=== PATIENT | female | born 1935 | race Caucasian/White ===

== ENCOUNTER → 2017-11-13 | Outpatient (CLI) | payer MEDICARE, OTHER ==
[~2017-11-13] MED LIST: ADVIL PM CAPLE1 EACH PO; AMOXICILLIN875 MG PO; ASPIR 8181 MG PO; ASPIRIN325 PO; CIPRO500 MG PO; HYDROCODONE-AP1 EAC6 PO; LEVSIN0.125 MG PO; NOHOMEMEDICATIONS; NORCO 5-325 TA1 EACH PO; NORVASC10 MG PO; ONDANSETRON HCL4 M2 PO; PYRIDIUM100 M1 PO; TYLENOL325 MG PO
[2017-11-13 12:22] LABS: ALBUMIN 3.9 g/dL (3.4-5.0); CALCIUM 9.2 mg/dL (8.5-10.1); CREATININE 1.6 mg/dL (0.6-1.3); POTASSIUM 4.5 mmol/L (3.5-5.1); TOTAL BILIRUBIN 0.3 mg/dL (<0.1-1.0); TOTAL PROTEIN 7.4 g/dL (6.4-8.2)
== END ==
LOC: M.RAD 11:26
PROVIDERS: Urology
DX: I70.0 Atherosclerosis of aorta (principal); Z85.53 Personal history of malignant neoplasm of renal pelvis

== ENCOUNTER → 2018-01-17 | Day surgery (SDC) | payer MEDICARE, OTHER ==
[2018-01-07 10:29] LABS: ABSOLUTE BASOPHILS 0.1 thou/uL (0.0-0.2); ABSOLUTE EOSINOPHILS 0.2 thou/uL (0.0-0.7); ABSOLUTE LYMPHOCYTES 1.7 thou/uL (0.8-5.3); ABSOLUTE MONOCYTES 0.4 thou/uL (0.0-1.2); ABSOLUTE NEUTROPHILS 3.1 thou/uL (1.6-8.1); BASOPHILS 1.3 %; EOSINOPHILS 3.8 %; HEMATOCRIT 40.6 % (37.0-47.0); HEMOGLOBIN 13.6 gm/dL (12.0-15.0); LYMPHOCYTES 30.5 %; MCH 31.4 pg (26.0-34.0); MCHC 33.6 g/dL (28.0-37.0); MCV 93.4 fL (80.0-100.0); MONOCYTES 7.4 %; NUCLEATED RBCS 0 /100WBC; PLATELET COUNT* 217 thou/uL (150-400); RBC 4.34 mil/uL (4.20-5.00); RDW-CV 13.9 % (10.5-14.5); WBC 5.5 thou/uL (4.0-11.0)
[2018-01-07 10:39] LABS: CALCIUM 9.7 mg/dL (8.5-10.1); CREATININE 1.3 mg/dL (0.6-1.3); POTASSIUM 4.2 mmol/L (3.5-5.1)
--- NOTE | 2018-01-07 10:44 | EKG ---
[place] [address] ELECTROCARDIOGRAM REPORT Name: BRADY WELLS Room: [facility].#: [id number] Admission: Attend Phys: Susi Aguilar, Discharge: Date of : 31 Report #: [id number] THIS REPORT FOR: //name// [facility] Test Date: 2018-01-07 Test Time: 09:52:50 Pat Name: BRADY WELLS Department: Room: Gender: F It Teacher: TIRSO : 1935 Requested By: Susi Aguilar Order Number: [id number] Reading MD: Evaristo Cope Measurements Intervals [place] Rate: 66 P: 76 CA: 176 QRS: -28 QRSD: 112 T: 37 QT: 393 QTc: 412 Interpretive Statements Sinus rhythm Atrial premature complex septal q waves Compared to ECG 12/25/2016 16:19:42 Atrial premature complex(es) now present Q waves now present Left ventricular hypertrophy no longer present Electronically Signed On 01-07-2018 10:44:00 CDT by Evaristo Cope [email or web address] <ELECTRONICALLY SIGNED> By: Evaristo Cope MD, [facility] 01/07/18 [phone] Evaristo Cope MD, [facility] /EPI
--- NOTE | 2018-01-22 14:50 | PATH ---
[address] [address] PATHOLOGY RPT PROCEDURE Name: BRADY WELLS Room: [facility] M.R.#: [id number] Admission: 01/17/18 Date of : 31 Discharge: Report #: [id number] Path Case #: [id number] L[facility] Accession Number: [id number] . 01 Material submitted: . PART A: BLADDER TUMOR PART B: DEEP BLADDER TUMOR . 01 Clinical history: . Bladder tumor . 02 Diagnosis: A. Bladder tumor: - NONINVASIVE, PAPILLARY UROTHELIAL CARCINOMA, HIGH GRADE. - Benign muscularis propria present. See comment. . B. Deep bladder tumor: - NONINVASIVE, PAPILLARY UROTHELIAL CARCINOMA, HIGH GRADE. - Benign muscularis propria present. See comment. (DARCI:cari; 01/21/2018) QMS/01/21/2018 . 02 Comment: Specimens A and B reviewed with Dr. Kiko Khanna, who agrees with the diagnoses. (DARCI:[facility]; 01/21/2018) . 02 Electronically signed: . Suresh Bustillo MD, Pathologist NPI- [id number] . 01 Gross description: . A. Received in formalin labeled "Brady Wells, bladder tumor," are multiple fragments of granados-brown soft tissue weighing less than 1 g and measuring 1.8 x 0.8 x 0.3 cm in aggregate dimensions. The specimen is submitted entirely in cassette A1. . B. Received in formalin labeled "Brady Wells, deep bladder tumor," are multiple fragments of granados-brown soft tissue weighing less than 1 g and measuring 1.3 x 1.2 x 0.3 cm in aggregate dimensions. The specimen is submitted entirely in cassette B1. (DAC; 01/18/2018) XDC/XDC . 02 Pathologist provided ICD-10: C67.9 . 02 [place] [address] PATHOLOGY RPT PROCEDURE Name: BRADY WELLS Room: [facility]#: [id number] Admission: 01/17/18 Date of : 31 Discharge: Report #: [id number] Path Case #: [id number] Performed at: 01 [facility] [address] [facility] [address], [place], [place] [id number] MD Jono Neville MD Phone: [phone] Performed at: 02 [facility] [address], [place], [place] [id number] MD Suresh Bustillo MD Phone: [phone]
--- NOTE | 2018-02-06 10:07 | OP ---
[facility] [address] [place] [address] OPERATIVE REPORT Name: BRADY WELLS Gregg Room: [facility].#: [id number] Admission: 01/17/18 Attend Phys: Susi Aguilar, Discharge: Date of : 31 Report #: [id number] THIS REPORT FOR: //name// CC: [facility] Susi Aguilar Hugo Garcia DATE OF SERVICE: 01/17/2018 PREOPERATIVE DIAGNOSIS: Bladder tumor. POSTOPERATIVE DIAGNOSIS: Bladder tumor. PROCEDURE: Transurethral resection of bladder tumor (medium), fulguration of small bladder tumor, right retrograde pyelogram. SURGEON: Susi Aguilar M.D. ANESTHESIA: General. ESTIMATED BLOOD LOSS: Minimal. COMPLICATIONS: None. SPECIMENS: 1. Bladder tumor. 2. Deep bladder tumor. INDICATIONS FOR PROCEDURE: The patient is an 82-year-old female who used to see my partner, Dr. Mayo. 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 Surveillance cystoscopy was recommended and she was noted to have an approximately 3 cm sessile appearing bladder tumor in the region of where the right ureteral orifice used to be. TURBT was recommended. The risks of procedure were discussed including but not limited to infection, bleeding, injury to the urethra, bladder or ureters, bladder perforation requiring open repair, cardiopulmonary complications. She voiced understanding and wishes to proceed. DESCRIPTION OF PROCEDURE: After informed consent was obtained, the patient was taken back to the operating suite and placed supine. After induction of general anesthesia, she was placed in dorsal lithotomy position. Genitalia were prepped and draped in standard fashion. A rigid cystoscopy was performed. Approximately 3 cm papillary sessile bladder tumor was seen arising from the right area where the right ureteral orifice used to be. This was somewhat mounded up in appearance. There was a very tiny bladder tumor on the right posterior wall, probably 2-3 mm in size, which [place] [address] OPERATIVE REPORT Name: BRADY WELLS [id number] Admission: 01/17/18 Attend Phys: Susi Aguilar, Discharge: Date of : 31 Report #: [id number] Her left ureteral orifice was normal and there were no other tumors noted. Intraoperative photographs were taken. Changed out to the 24-Azeri resectoscope and resection was performed of the bladder tumor in the right trigonal area where the UO used to be. Resection was noted to visualize muscle fibers; however, in the center of the tumor, initially looked like the tumor base was clear; however, with some pressure on the tumor base, I saw more papillary tumor arising from the center of the prior tumor site, almost as if the right UO was still present and tumor was protruding from the UO. I tried to manipulate this bimanually to get some of this exposed and to pop out and resected some of it, but I could not continue to resect deeper as I was going to perforate the bladder if I continued to proceed and tumor continued to appear erupting from the center of that tumor base. I did elect to go ahead and change the cystoscope and placed a cone tipped catheter in this area and I was able to slide it just inside this area and it literally almost looked as if the UO was still present. I injected contrast, but none filled any semblance of a ureteral remnant at all. It just all filled the bladder. I probed the area with a ZIPwire as well and it did not probe far at all, so I am unclear if this represents residual orifice or if this is just nature of the recurrent tumor. Nevertheless, I tried to fulgurate the base as best as possible even though there was still tumor underneath and photographs were taken. Hemostasis was excellent. At this point, I did send separate specimens of bladder tumor and deeper tissue. The posterior wall tumor was very tiny and I just fulgurated that with the loop thoroughly. I should also note there was no extravasation of contrast when I attempted a retrograde either. Bladder was filled and reinspected one final time. Hemostasis remained excellent. There was no remaining visible tumor, but I am confident there is still some papillary tumor below the center of the base of the tumor still. This may just represent muscle invasive tumor versus residual orifice. The bladder was drained one final time. The scope was removed and 5 mL of lidocaine jelly were placed per urethra for local anesthesia. She was awoken, extubated and taken to recovery in satisfactory condition. She will be dismissed home and follow up with me in a week to discuss pathology and next steps. <ELECTRONICALLY SIGNED> By: Susi Aguilar MD 02/06/18 1007 1349 1415Susi Aguilar MD /nt
== END | disposition home or self-care (01) ==
LOC: M.SUR 09:32
PROVIDERS: Urology
DX: C67.9 Malignant neoplasm of bladder, unspecified (principal); Z79.82 Long term (current) use of aspirin; Z79.891 Long term (current) use of opiate analgesic; Z98.890 Other specified postprocedural states; Z87.440 Personal history of urinary (tract) infections; Z85.53 Personal history of malignant neoplasm of renal pelvis

== ENCOUNTER → 2018-03-06 | Day surgery (SDC) | payer MEDICARE, OTHER ==
[2018-03-06 11:30] LABS: HEMATOCRIT 39.8 % (37.0-47.0); HEMOGLOBIN 13.2 gm/dL (12.0-15.0); MCH 31.1 pg (26.0-34.0); MCHC 33.2 g/dL (28.0-37.0); MCV 93.6 fL (80.0-100.0); MPV 8.7 fl. (7.2-11.1); RBC 4.26 mil/uL (4.20-5.00); RDW-CV 13.4 % (10.5-14.5); WBC 5.1 thou/uL (4.0-11.0)
[2018-03-06 11:36] LABS: CALCIUM 9.2 mg/dL (8.5-10.1); CREATININE 1.3 mg/dL (0.6-1.3); POTASSIUM 4.3 mmol/L (3.5-5.1)
[2018-03-06 11:40] LABS: ALBUMIN 3.9 g/dL (3.4-5.0); TOTAL BILIRUBIN 0.5 mg/dL (<0.1-1.0); TOTAL PROTEIN 7.6 g/dL (6.4-8.2)
--- NOTE | 2018-03-08 13:08 | OP ---
[facility] [address] [place] [address] OPERATIVE REPORT Name: RUSSELLBRADY R Room: [facility].#: [id number] Admission: 03/06/18 Attend Phys: Susi Aguilar, Discharge: Date of : 31 Report #: [id number] THIS REPORT FOR: //name// CC: [facility] Susi Aguilar Hugo Garcia DATE OF SERVICE: 03/06/2018 PREOPERATIVE DIAGNOSIS: Bladder cancer. POSTOPERATIVE DIAGNOSIS: Bladder cancer. PROCEDURE: Restaging transurethral resection of bladder tumor (small). SURGEON: Susi Aguilar M.D. ANESTHESIA: General. ESTIMATED BLOOD LOSS: None. COMPLICATIONS: None. SPECIMENS: Bladder tumor. INDICATION FOR PROCEDURE: The patient is an 82-year-old female with history of TCC of the right kidney. She had a right nephroureterectomy in the past. She was found on surveillance cystoscopy to have a bladder tumor overlying the area where the right UO used to be. She underwent resection of this about 6 weeks or so ago, this came back as high-grade bladder cancer, was recommended she undergo restaging TURBT given the high-grade nature of her disease. Risks of procedure were discussed including but not limited to infection, bleeding, injury to the urethra, bladder, ureter, bladder perforation requiring open repair, cardiopulmonary complications. She voiced understanding and wished to proceed. DESCRIPTION OF PROCEDURE: After informed consent was obtained, the patient was taken back to the operating suite and placed supine. After induction of general anesthesia, she was placed in dorsal lithotomy position, genitalia prepped and draped in standard fashion. Rigid cystoscopy was performed. She had a new papillary tumor in the area where the previous right UO used to be in the area of the previous resection site. This was probably 1-1.5 cm in size. The rest of the bladder was inspected and there were no other tumors or mucosal lesions seen. Her left ureteral orifice was normal with clear efflux. Changed out to the 24-Bulgarian resectoscope and resection of this tumor was performed. Unlike last time when I kept resecting and there appeared to be tumor deeper and deeper, this actually appeared to be a clear [place] [address] OPERATIVE REPORT Name: BRADY WELLS Gregg Room: [facility].#: [id number] Admission: 03/06/18 Attend Phys: Susi Aguilar, Discharge: Date of : 31 Report #: [id number] any evidence of tumor deeper down. After last resection, I had spoken with Dr. Rashid about her nephroureterectomy and we suspected may be the appearance of the tumor last time was because of possibly her cystotomy repair and potentially being within a mucosal fold of that cystotomy repair, but fortunately today, this looks much better and definitely looked like normal bladder mucosa underneath the entirety of this new tumor. The area was then thoroughly cauterized and the pieces were drained out and sent for specimen. The bladder was filled and reinspected and there was no remaining tumor seen and the resection margins were hemostatic as well as the base of the tumor was hemostatic. The bladder was then drained, the scope was removed and 5 mL of lidocaine jelly were placed per urethra for local anesthesia. She was awoken, extubated and taken to recovery in satisfactory condition. She will be dismissed home and follow up with me a week or two for pathology discussion. <ELECTRONICALLY SIGNED> By: Susi Aguilar MD 03/08/18 1308 1322 1355Susi Aguilar MD /nt
--- NOTE | 2018-03-11 12:05 | PATH ---
[address] [address] PATHOLOGY RPT PROCEDURE Name: BRADY WELLS Room: [facility] M.R.#: [id number] Admission: 03/06/18 Date of : 31 Discharge: Report #: [id number] Path Case #: [id number] [facility] Accession Number: [id number] . 01 Material submitted: . BLADDER TUMOR . 01 Clinical history: . Bladder tumor . 02 Diagnosis: Bladder tumor: - NONINVASIVE PAPILLARY UROTHELIAL CARCINOMA, HIGH GRADE. - Benign smooth muscle consistent with muscularis propria/fibrovascular stroma with foreign body type granulomatous response consistent with prior instrumentation. See comment. (DARCI:cari; 03/09/2018) . QMS/03/11/2018 . 02 Comment: Review of Dr. Aguilar's operative report dated 03/06/2018 reveals the patient to have had prior resection of high-grade bladder tumor approximately six weeks previous, as well as a prior history of right kidney TCC. Reviewed with Dr. Person, who agrees with the diagnosis. . (DARCI:cari; 03/09/2018) . 02 Electronically signed: . Suresh Bustillo MD, Pathologist NPI- [id number] . 01 Gross description: . The specimen is received in formalin, labeled "Brady Wells, bladder tumor". Received are multiple segments of light granados to pink-granados, friable soft tissue measuring 2.2 x 1.8 x 0.3 cm in aggregate dimensions. The specimen is filtered and entirely submitted in cassette A1. (CAA; 03/07/2018) QAC/QAC . 02 Pathologist provided ICD-10: C67.9 . 02 CPT . 610379 Performed at: [address] [id number] [address] [address] PATHOLOGY RPT PROCEDURE Name: BRADY WELLS Room: [facility]#: [id number] Admission: 03/06/18 Date of : 31 Discharge: Report #: [id number] Path Case #: [id number] MD Jono Neville MD Phone: [phone] Performed at: [address] [id number] MD Suresh Bustillo MD Phone: [phone]
== END | disposition home or self-care (01) ==
LOC: M.SUR 10:12
PROVIDERS: Urology
DX: C67.9 Malignant neoplasm of bladder, unspecified (principal)